=== PATIENT | male | born 1980 | race Caucasian/White ===

== ENCOUNTER 2021-06-09 23:31 | Emergency (ER) | payer OTHER, SELFPAY ==
--- NOTE | ~2021-06-09 | XR_ITS ---
EXAMINATION: XR CHEST CLINICAL INFORMATION: Right lower chest wall pain COMPARISON: 03/26/2018 TECHNIQUE: 2 views of the chest were obtained. FINDINGS: No significant abnormality is noted involving the heart, lungs, mediastinum, bony thorax or soft tissues. Previously seen left lower lobe atelectasis has cleared. XR/XR chest 2V IMPRESSION: Unremarkable examination.
[2021-06-09 23:34] VITALS: BP 124/79; PULSE 77; RESP 18; TEMP 36.4; O2SAT 98; BMI 30.4
[2021-06-09 23:51] LABS: Appearance Urine CLEAR; Color Urine YELLOW; Glucose Urine UA >=1000 MG/DL (NEG); Leukocyte Esterase Urine NEG (NEG); Nitrite Urine NEG (NEG); Specific Gravity - Urine 1.015 (1.005-1.025); Urine Blood NEG (NEG); Urine Ketones NEG (NEG); Urine Protein NEG (NEG-TRACE)
[2021-06-09 23:57] LABS: RBC Urine 0 /HPF (0); Squamous Epithelial Cell Urine TRACE /LPF; Triple Phosphate Crystal Urine TRACE /LPF; Tyrosine Crystal Urine TRACE /LPF; WBC Urine 0 /HPF (0-4)
--- NOTE | 2021-06-10 | ED_ITS ---
HPI - Back Pain/Injury General Chief Complaint: Back Pain/Injury Stated Complaint: Flank pain Time Seen by Provider: 06/09/21 23:33 Source: patient Mode of arrival: ambulatory History of Present Illness HPI Narrative: 41-year-old male with history of diabetes who presents with 3 days of right, posterior lower chest wall/back pain that has not been associated with any falls, cough, fevers, chills, difficulty breathing or chest pain/palpitations and not associated with any nausea, vomiting, abdominal pain, or diarrhea. In addition pain, is nonradiating not associated with any urinary pain/burning/frequency. Patient states he has been able to continue eating and drinking without difficulty. Related Data Previous Rx's Medication Instructions Recorded ketorolac 10 mg tablet 10 mg PO Q6H PRN 5 Days #20 tab 06/10/21 Allergies Allergy/AdvReac Type Severity Reaction Status Date / Time No Known Allergies Allergy Verified 06/09/21 23:34 Review of Systems Review of Systems: Pertinent positives and negatives as stated in HPI 10 point review systems is otherwise negative. PMFSH Past Medical History Source: nursing notes reviewed Medical History Diabetes Social History Social History Advance Directives: No Physical Exam Vital Signs: Vital Signs: Last Vital Signs Temp 97.6 F 06/09/21 23:34 Pulse 77 06/09/21 23:34 Resp 18 06/09/21 23:34 BP 124/79 06/09/21 23:34 Pulse Ox 98 06/09/21 23:34 BMI result Body Mass Index 30.4 VITAL SIGNS: Reviewed. GENERAL: Well developed, well nourished, in no acute distress. HEAD: Normocephalic/atraumatic EYES: PERRLA, EOMI OROPHARYNX: no oral lesions noted, posterior pharynx clear LUNGS: Normal breath sounds, no tachypnea No adventitious sounds or accessory muscle use. SpO2<98>; CHEST WALL: No rib deformity, crepitus noted. CARDIOVASCULAR: Regular rate and rhythm without noted murmurs ABDOMEN: Soft, mild tenderness to palpation at right posterior flank that is reproducible along MSK distribution, non-distended with bowel sounds, no CVA tenderness MUSCULOSKELETAL: No tenderness, deformities, or effusions noted on gross inspection. EXTREMITIES: No cyanosis, clubbing or edema. SKIN: Inspection of the skin reveals no rashes NEUROLOGIC: Alert and oriented x 4. Strength and sensation to light touch were grossly intact x 4. Course Course Course Narrative: 41-year-old male with history and clinical presentation not consistent with any infectious, traumatic etiologies and doubt gallbladder or renal source. In most consistent with musculoskeletal, will obtain chest x-ray, urinalysis, and provide combination analgesics. Review of all investigations negative for acute findings and on re-evaluation patient states his pain is significantly improved and he will be discharged in stable condition with recommendations follow-up with his primary care provider. MDM - Back Pain/Injury Lab Data Labs: Lab Results 06/09/21 06/10/21 Range/Units 23:45 00:17 POC Glucose 366 H* (60-115) mg/dL Urine Color YELLOW Urine Appearance CLEAR Urine pH 6.0 (5.0-8.0) Ur Specific [place] 1.015 (1.005-1.025) Urine Protein NEG (NEG-TRACE) MG/DL Urine Glucose (UA) >=1000 H (NEG) MG/DL Urine Ketones NEG (NEG) MG/DL Urine Blood NEG (NEG) Urine Nitrite NEG (NEG) Ur Leukocyte Esterase NEG (NEG) Urine RBC 0 (0) /HPF Urine WBC 0 (0-4) /HPF Ur Squamous Epith Cells TRACE /LPF Triple Phos Crystals TRACE /LPF Tyrosine Crystals TRACE /LPF Urine Bacteria NONE /LPF Discharge Plan Discharge Clinical Impression: Musculoskeletal back pain Patient Disposition: Home, Self-Care Instructions: Musculoskeletal Pain (ED) Additional Instructions: 1. Resume all home medications as prescribed. 2. Tylenol 1000 mg, orally, every 6 hours as needed for pain control. Do not exceed 4000 mg within 24 hours. 3. Recommend [id number] lidocaine patch, these are to be applied as directed on the outside packaging to the area of maximal tenderness. 4. Follow-up with your primary care provider for re-evaluation and further outpatient management. Return to the ER for worsening symptoms. Prescriptions: New ketorolac 10 mg tablet 10 mg PO Q6H PRN (Reason: pain) 5 Days Qty: 20 0RF Rx Instructions: Patient received Toradol in the emergency room. Referrals: Neal Putnam MD [Primary Care Provider] - 2 days
[2021-06-10] MEDS: Ketorolac Tromethamine 15 MG/ML VIAL IM (00:21)
[2021-06-10 00:22] LABS: Glucose, Whole Blood 366 mg/dL (60-115)
[2021-06-10] MEDS: Lidocaine 4 % Patch ADH..PATCH 1 PATCH TRANSDERMA (00:22)
[2021-06-10] MEDS: Acetaminophen 325 MG TABLET 975 MG PO (00:22)
== END 2021-06-10 00:50 | disposition home or self-care (01) ==
PROVIDERS: Emergency Provider Student in an Organized Health Care Education/Training Program; PCP Internal Medicine
DX: M79.18 Myalgia, other site (principal); R10.9 Unspecified abdominal pain; E11.9 Type 2 diabetes mellitus without complications
CPT/HCPCS: 71046; 81001; 82947; 96372; 99284; J1885

== ENCOUNTER 2022-03-06 23:11 | Emergency (ER) | payer OTHER, SELFPAY ==
[2022-03-06 23:24] VITALS: BP 140/93; PULSE 81; RESP 16; TEMP 36.6; O2SAT 99; BMI 31.1
== END 2022-03-07 00:06 | disposition left against medical advice (07) ==
PROVIDERS: Emergency Provider Emergency Medicine
DX: M54.50 Low back pain, unspecified (principal)
CPT/HCPCS: 99281